=== PATIENT | female | born 1930 | race Caucasian/White ===

== ENCOUNTER 2017-08-17 19:31 | Emergency (ER) | payer BC, MEDICARE ==
[~2017-08-17] VITALS: Ht 157.5 cm; Wt 65.0 kg
[~2017-08-17 19:31] MED LIST: CARV3.12 PO; EPIP0.3I IM; LACTCAP8 PO; LEVO50TA4 PO; MULT1TAB84 PO; SACC1CAP3 PO
[2017-08-17 19:33] VITALS: BP 159/69; PULSE 81; RESP 18; TEMP 98.4; O2SAT 98
[2017-08-17] MEDS ORDERED: SODIUM CHLORIDE 0.9% FLUSH 10 ML FLUSH IVF PRN (20:00)
[2017-08-17 20:06] VITALS: BP 144/68; PULSE 96
--- NOTE | 2017-08-17 20:08 | PD ---
HPI Chief Complaint: Chest Pain Time Seen by Provider: 20:01 Travel History International Travel<30 days: No Contact w/Intl Traveler<30days: No Traveled to known affect area: No History of Present Illness HPI Patient is a 60 female presenting to the emergency department for evaluation of palpitations. She states that she started having a dull headache this afternoon , she felt chilled so she checked her temperature and she reports it as being 100. She also noted that her heart rate was fast. She denied any nausea, vomiting, abdominal pain, chest pain, shortness of breath, visual changes, body aches, nasal congestion, sore throat. She states that she was concerned because she had stents placed on 07/10/17 more she was in [place]. She reports seeing Dr. Beach last week and states everything was okay. 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) Social History Alcohol Use: Yes (RED WINE ONE GLASS ) Tobacco Use: No Substance Use: No Allergies-Medications (Allergen,Severity, Reaction): Coded Allergies: black pepper (Verified Allergy, Severe, Swelling, 08/17/17) LIP SWELLING No Known Allergies (Unverified Adverse Reaction, Unknown, 08/17/17) Reported Meds & Prescriptions Reported Meds & Active Scripts Active Levothyroxine (Levothyroxine Sodium) 50 Mcg Tab 50 Mcg PO DAILY Reported Probiotic (Lactobacillus Acidophilus) 1 Cap Cap 1 Cap PO TIDAC Multivitamin Adults (Multiple Vitamins W/ Minerals) 1 Tab 1 Tab PO DAILY Carvedilol 3.125 Mg Tab 3.125 Mg PO BID Epipen 2-Marco A Inj (Epinephrine) 0.3 Mg/0.3 Ml Pfpen 0.3 Mg IM ONCE PRN Probiotic (Saccharomyces Boulardii) 250 Mg Cap 250 Mg PO BID Review of Systems Except as stated in HPI: all other systems reviewed are Neg General / Constitutional: Positive: Fever HENT: Positive: Headaches Cardiovascular: Positive: Palpitations, Tachycardia Respiratory: No: Cough, Shortness of Breath Gastrointestinal: No: Nausea, Abdominal Pain Musculoskeletal: No: Myalgias Neurologic: No: Weakness, Dizziness, Syncope, Focal Abnormalities Physical Exam Narrative GENERAL: Well-developed, well-nourished, elderly female. Resting comfortably in no acute distress. SKIN: Warm and dry. HEAD: Atraumatic. Normocephalic. EYES: Pupils equal and round. No scleral icterus. No injection or drainage. ENT: No nasal bleeding or discharge. Mucous membranes pink and moist. NECK: Trachea midline. No JVD. CARDIOVASCULAR: Regular rate and rhythm. RESPIRATORY: No accessory muscle use. Clear to auscultation. Breath sounds equal bilaterally. GASTROINTESTINAL: Abdomen soft, non-tender, nondistended. Hepatic and splenic margins not palpable. MUSCULOSKELETAL: Extremities without clubbing, cyanosis, or edema. No obvious deformities. NEUROLOGICAL: Awake and alert. No obvious cranial nerve deficits. Motor grossly within normal limits. Five out of 5 muscle strength in the arms and legs. Normal speech. PSYCHIATRIC: Appropriate mood and affect; insight and judgment normal. Data Data Last Documented VS Vital Signs Date Time Temp Pulse Resp B/P (MAP) Pulse Ox O2 Delivery O2 Flow Rate FiO2 08/17/17 20:35 96 18 144/68 (93) 96 Room Air 08/17/17 19:33 98.4 Orders Orders Electrocardiogram (08/17/17 20:00) Ckmb (Isoenzyme) Profile (08/17/17 20:00) Complete Blood Count With Diff (08/17/17 20:00) Comprehensive Metabolic Panel (08/17/17 20:00) Magnesium (Mg) (08/17/17 20:00) Prothrombin Time / Inr (Pt) (08/17/17 20:00) Act Partial Throm Time (Ptt) (08/17/17 20:00) Troponin I (08/17/17 20:00) Lipase (08/17/17 20:00) Chest, Single Ap (08/17/17 20:00) Ecg Monitoring (08/17/17 20:00) Bilateral Bp Monitoring (08/17/17 20:00) Iv Access Insert/Monitor (08/17/17 20:00) Oximetry (08/17/17 20:00) Oxygen Administration (08/17/17 20:00) Sodium Chloride 0.9% Flush (Ns Flush) (08/17/17 20:00) Urinalysis - C+S If Indicated (08/17/17 20:00) CKMB (08/17/17 20:45) CKMB% (08/17/17 20:45) Ed Discharge Order (08/17/17 22:02) Acetaminophen (Tylenol) (08/17/17 22:15) Labs Laboratory Tests Test 08/17/17 20:45 White Blood Count 8.6 TH/MM3 Red Blood Count 4.06 MIL/MM3 Hemoglobin 12.9 GM/DL Hematocrit 38.2 % Mean Corpuscular Volume 94.0 FL Mean Corpuscular Hemoglobin 31.8 PG Mean Corpuscular Hemoglobin Concent 33.9 % Red Cell Distribution Width 14.0 % Platelet Count 267 TH/MM3 Mean Platelet Volume 8.4 FL Neutrophils (%) (Auto) 89.8 % Lymphocytes (%) (Auto) 5.4 % Monocytes (%) (Auto) 3.8 % Eosinophils (%) (Auto) 0.4 % Basophils (%) (Auto) 0.6 % Neutrophils # (Auto) 7.7 TH/MM3 Lymphocytes # (Auto) 0.5 TH/MM3 Monocytes # (Auto) 0.3 TH/MM3 Eosinophils # (Auto) 0.0 TH/MM3 Basophils # (Auto) 0.0 TH/MM3 CBC Comment DIFF FINAL Differential Comment Blood Urea Nitrogen 10 MG/DL Creatinine 0.94 MG/DL Random Glucose 102 MG/DL Total Protein 7.8 GM/DL Albumin 4.0 GM/DL Calcium Level 8.7 MG/DL Magnesium Level 2.0 MG/DL Alkaline Phosphatase 48 U/L Aspartate Amino Transf (AST/SGOT) 30 U/L Alanine Aminotransferase (ALT/SGPT) 19 U/L Total Bilirubin 0.5 MG/DL Sodium Level 137 MEQ/L Potassium Level 4.2 MEQ/L Chloride Level 104 MEQ/L Carbon Dioxide Level 24.1 MEQ/L Anion Gap 9 MEQ/L Estimat Glomerular Filtration Rate 56 ML/MIN Total Creatine Kinase 146 U/L Creatine Kinase MB 1.4 NG/ML Troponin I LESS THAN 0.02 NG/ML Lipase 133 U/L MDM Medical Decision Making Medical Screen Exam Complete: Yes Emergency Medical Condition: Yes Medical Record Reviewed: Yes Interpretation(s) Vital Signs Date Time Temp Pulse Resp B/P (MAP) Pulse Ox O2 Delivery O2 Flow Rate FiO2 08/17/17 19:33 98.4 81 18 159/69 (99) 98 Room Air Differential Diagnosis ACS versus USA versus viral syndrome versus metabolic abnormality versus UTI versus other Narrative Course Patient is a 86-year-old female that presented to emergency department evaluation of palpitations and headache. No focal deficits noted on exam. Labs and imaging ordered and pending. Patient's vital signs are stable. Chest x-ray shows no acute disease CBC and chemistry reviewed, unremarkable. Cardiac enzymes are negative 1 set EKG shows sinus rhythm with occasional PVCs. Discussed findings with my attending physician as well as patient. Patient was given the option of being placed in the chest pain Center overnight as we do not have access to her records from [place] after the stent placement. Patient would rather be discharged home and will follow up with her doctor of optometry. She was given strict return precautions. She was encouraged return to emergency department immediately for any new or worsening symptoms. Patient and Spouse verbalized understanding of these instructions. Patient was given acetaminophen for her headache. Diagnosis Primary Impression: Intermittent palpitations Additional Impression: Headache Qualified Codes: R51 - Headache Referrals: Heavy Equipment Field Mechanic 2 days Primary Care Physician 2 days Patient Instructions: Chest Pain (ED), General Instructions, Heart Palpitations (ED) Additional Instructions: Follow-up with her doctor of optometry in 1-2 days Follow-up with her primary doctor in 1-2 days Return to emergency department immediately for any new or worsening symptoms Continue home medications as previously prescribed Med/Other Pt SpecificInfo: No Change to Meds Disposition: 01 DISCHARGE HOME Condition: Stable Deisy Alexander Aug 17, 2017 20:08
--- NOTE | 2017-08-17 20:15 | PD ---
Physical Exam Narrative General: The patient is a well-developed well-nourished female in no acute distress. Head and Neck exam: Head is normocephalic atraumatic. Eyes: Pupils are equal round and reactive to light. Nose: Midline septum with pink mucous membranes Mouth: Dentition unremarkable. Moist mucus membranes. Posterior oropharynx is not erythematous. No tonsillar hypertrophy. Uvula midline. Airway patent. Neck: No palpable lymphadenopathy. No nuchal rigidity. No thyromegaly. Cardiovascular: Regularly irregular on auscultation with occasional PVCs noted without murmurs, gallops, or rubs. No pulse deficit to the extremities on simultaneous auscultation and palpation of her radial artery. Lungs: Clear to auscultation bilaterally. No wheezes, rhonchi, or rales. Abdomen: Soft, without tenderness to palpation in all 4 quadrants of the abdomen. No guarding, rebound, or rigidity. Normal bowel sounds are audible. No tenderness on palpation of McBurney's point. Extremities: No clubbing or cyanosis. The patient has trace pedal edema bilateral lower extremities. 2+ pulses in all 4 extremities. No calf tenderness on palpation. Back: No costovertebral angle tenderness to palpation. Neurologic Exam: Grossly nonfocal. Skin Exam: No rash noted. Intact skin that is warm and dry. Data Data Last Documented VS Vital Signs Date Time Temp Pulse Resp B/P (MAP) Pulse Ox O2 Delivery O2 Flow Rate FiO2 08/17/17 22:07 08/17/17 20:35 96 18 96 Room Air 08/17/17 19:33 98.4 Orders Orders Electrocardiogram (08/17/17 20:00) Ckmb (Isoenzyme) Profile (08/17/17 20:00) Complete Blood Count With Diff (08/17/17 20:00) Comprehensive Metabolic Panel (08/17/17 20:00) Magnesium (Mg) (08/17/17 20:00) Prothrombin Time / Inr (Pt) (08/17/17 20:00) Act Partial Throm Time (Ptt) (08/17/17 20:00) Troponin I (08/17/17 20:00) Lipase (08/17/17 20:00) Chest, Single Ap (08/17/17 20:00) Ecg Monitoring (08/17/17 20:00) Bilateral Bp Monitoring (08/17/17 20:00) Iv Access Insert/Monitor (08/17/17 20:00) Oximetry (08/17/17 20:00) Oxygen Administration (08/17/17 20:00) Sodium Chloride 0.9% Flush (Ns Flush) (08/17/17 20:00) CKMB (08/17/17 20:45) CKMB% (08/17/17 20:45) Ed Discharge Order (08/17/17 22:02) Acetaminophen (Tylenol) (08/17/17 22:15) Labs Laboratory Tests Test 08/17/17 20:45 08/17/17 21:30 White Blood Count 8.6 TH/MM3 Red Blood Count 4.06 MIL/MM3 Hemoglobin 12.9 GM/DL Hematocrit 38.2 % Mean Corpuscular Volume 94.0 FL Mean Corpuscular Hemoglobin 31.8 PG Mean Corpuscular Hemoglobin Concent 33.9 % Red Cell Distribution Width 14.0 % Platelet Count 267 TH/MM3 Mean Platelet Volume 8.4 FL Neutrophils (%) (Auto) 89.8 % Lymphocytes (%) (Auto) 5.4 % Monocytes (%) (Auto) 3.8 % Eosinophils (%) (Auto) 0.4 % Basophils (%) (Auto) 0.6 % Neutrophils # (Auto) 7.7 TH/MM3 Lymphocytes # (Auto) 0.5 TH/MM3 Monocytes # (Auto) 0.3 TH/MM3 Eosinophils # (Auto) 0.0 TH/MM3 Basophils # (Auto) 0.0 TH/MM3 CBC Comment DIFF FINAL Differential Comment Blood Urea Nitrogen 10 MG/DL Creatinine 0.94 MG/DL Random Glucose 102 MG/DL Total Protein 7.8 GM/DL Albumin 4.0 GM/DL Calcium Level 8.7 MG/DL Magnesium Level 2.0 MG/DL Alkaline Phosphatase 48 U/L Aspartate Amino Transf (AST/SGOT) 30 U/L Alanine Aminotransferase (ALT/SGPT) 19 U/L Total Bilirubin 0.5 MG/DL Sodium Level 137 MEQ/L Potassium Level 4.2 MEQ/L Chloride Level 104 MEQ/L Carbon Dioxide Level 24.1 MEQ/L Anion Gap 9 MEQ/L Estimat Glomerular Filtration Rate 56 ML/MIN Total Creatine Kinase 146 U/L Creatine Kinase MB 1.4 NG/ML Troponin I LESS THAN 0.02 NG/ML Lipase 133 U/L Prothrombin Time 11.5 SEC Prothromb Time International Ratio 1.1 RATIO Activated Partial Thromboplast Time 25.0 SEC [facility] Medical Record Reviewed: Yes Supervised Visit with KEITH: Yes Interpretation(s) Last Impressions Chest X-Ray 08/17/171999 Signed Impressions: Service Date/Time: Thursday, August 17, 2017 20:17 - CONCLUSION: No acute disease. Kurt Ojeda MD Differential Diagnosis SVT, versus paroxysmal atrial fibrillation, versus PVCs, versus dehydration, versus electrolyte derangement Narrative Course I, Dr. Graham, have reviewed the advance practice practitioner's documentation and am in agreement, met with the patient face to face, made the diagnosis, and the medical decision making was done by me. The patient was initially evaluated by Deisy, the nurse practitioner. Please see their complete history and physical. *My assessment and Findings: The patient presents with reported history of feeling chills and palpitations earlier this evening. She denies having any chest pain, chest pressure, or shortness of breath. She did however become concerned when she could feel her heart beating. She reports that her perinatal breastfeeding assistant is Dr. Beach. She reports that she recently underwent a heart catheterization with stent placement in July. She reports that she has on a low-dose aspirin and Plavix daily. She reports that she had a temperature of 100 prior to arrival. She is unsure whether she had her flu shot this year. She denies having any cough, congestion, abdominal pain, vomiting, diarrhea, difficulty with urinating, or new neurologic symptoms. During the course of the patients emergency department visit, the patients history, examination, and differential diagnosis were reviewed with the patient. The patient was placed on a cardiac/vascular sonographer with oximetry and frequent blood pressure monitoring. The patient had IV access obtained and blood work sent for analysis. The patient on my arrival to the room reports feeling completely well and is requesting to go home. The patient's ECG done on arrival shows a sinus rhythm with occasional ventricular premature complexes, nonspecific ST-T wave abnormalities, QRS duration is 74 ms, QTC 411 ms, no acute ST segment elevation or depression. The patients laboratory studies were reviewed and remarkable for a white count of 8.6, hemoglobin 12.9, platelets 267, neutrophils 89.8, CMP is remarkable for GFR 56, initial set of cardiac enzymes are negative, lipase 133, PT 11.5, PTT 25 Radiology studies were reviewed and remarkable for a chest x-ray that shows no acute cardiopulmonary disease. The patient was offered admission to the chest pain center for rule out serial cardiac enzyme protocol, however the patient prefers to follow-up as an outpatient and she reports feeling improved, symptoms completely resolved. The patient is resting comfortably and feels better, is alert and in no distress. The patients results and examination findings were discussed with the patient. The repeat examination is unremarkable and benign. The history, exam, diagnostic testing, and current condition do not suggest any significant pathology to warrant further testing, continued ED treatment, admission, or surgical evaluation at this point. The vital signs have been stable. The patient does not have uncontrollable pain, intractable vomiting, or other significant symptoms. The patient's condition is stable and appropriate for discharge. The patient will pursue further outpatient evaluation with a primary care physician or other designated or consulting physician as indicated in the discharge instructions. The patient expressed understanding and was agreeable with this plan. Anna Graham MD Aug 17, 2017 20:15
--- NOTE | 2017-08-17 20:33 | RADRPT ---
EXAM DATE/TIME: 08/17/2017 20:17 [facility] COMPARISON: No previous studies available for comparison. INDICATIONS : Chest pain MEDICAL HISTORY : SURGICAL HISTORY : None. ENCOUNTER: Initial ACUITY: 1 day PAIN SCORE: 0/10 LOCATION: chest FINDINGS: The heart size is normal. There is linear suspected atelectasis or consolidation at the medial left l lionel base. The lungs are otherwise clear. No effusion is seen. CONCLUSION: No acute disease. Kurt Oejda MD on August 17, 2017 at 20:30 Board Certified Radiologist. This report was verified electronically.
[2017-08-17 20:35] VITALS: BP 144/68; PULSE 96; RESP 18; O2SAT 96
[2017-08-17 21:14] LABS: AUTOMATED NEUTROPHIL # 7.7 TH/MM3 (1.8-7.7); BASOPHIL % 0.6 % (0.0-2.0); EOSINOPHIL % 0.4 % (0.0-4.0); HEMATOCRIT 38.2 % (35.0-46.0); HEMOGLOBIN 12.9 GM/DL (11.6-15.3); LYMPH % 5.4 % (9.0-44.0); LYMPHOCYTE # 0.5 TH/MM3 (1.0-4.8); MEAN CORPUSCULAR HEMOGLOBIN 31.8 PG (27.0-34.0); MEAN CORPUSCULAR HGB CONC 33.9 % (32.0-36.0); MEAN PLATELET VOLUME 8.4 FL (7.0-11.0); MONO % 3.8 % (0.0-8.0); MONOCYTE # 0.3 TH/MM3 (0-0.9); NEUT % 89.8 % (16.0-70.0); PLATELET COUNT 267 TH/MM3 (150-450); RED BLOOD COUNT 4.06 MIL/MM3 (4.00-5.30); WHITE BLOOD COUNT 8.6 TH/MM3 (4.0-11.0)
[2017-08-17 21:35] LABS: ALKALINE PHOSPHATASE 48 U/L (45-117); ALT (GPT) 19 U/L (10-53); AST (GOT) 30 U/L (15-37); BICARBONATE 24.1 MEQ/L (21.0-32.0); BLOOD UREA NITROGEN 10 MG/DL (7-18); CALCIUM 8.7 MG/DL (8.5-10.1); CHLORIDE 104 MEQ/L (98-107); CREATININE 0.94 MG/DL (0.50-1.00); GLOMERULAR FILTRATION RATE 56 ML/MIN (>89); GLUCOSE,RANDOM 102 MG/DL (74-106); LIPASE 133 U/L (73-393); SODIUM (NA) 137 MEQ/L (136-145); TOTAL BILIRUBIN ADULT 0.5 MG/DL (0.2-1.0); TOTAL PROTEIN 7.8 GM/DL (6.4-8.2); TROPONIN I LESS THAN 0.02 NG/ML (0.02-0.05)
[2017-08-17] MEDS ORDERED: ACETAMINOPHEN 325 MG TAB PO ONE (22:15)
[2017-08-17 22:29] LABS: INTERNATIONAL NORMALIZED RATIO 1.1 RATIO; PROTHROMBIN TIME - PATIENT 11.5 SEC (9.8-11.6)
--- NOTE | 2017-08-18 18:07 | EKG ---
Date Performed: 08/17/2017 Time Performed: 20:03:09 PTAGE: 86 years EKG: Sinus rhythm WITH OCCASIONAL VENTRICULAR PREMATURE COMPLEXES NONSPECIFIC ST & T-WAVE ABNORMALITY BORDERLINE ECG S millicent PREVIOUS TRACING , no significant change noted PREVIOUS TRACIN03/02/2012 15.48 DOCTOR: Amrita Lopez Interpretating Date/Time 08/18/2017 18:06:21
== END 2017-08-17 22:31 | disposition home or self-care (01) ==
LOC: NEPE 19:31
DX: R00.2 Palpitations (principal); R07.9 Chest pain, unspecified; R51 Headache; R94.31 Abnormal electrocardiogram [ECG] [EKG]; E78.00 Pure hypercholesterolemia, unspecified; I25.10 Atherosclerotic heart disease of native coronary artery without angina pectoris; I10 Essential (primary) hypertension; E07.9 Disorder of thyroid, unspecified; Z79.899 Other long term (current) drug therapy
CPT/HCPCS: 71010; 80053; 82550; 82552; 83690; 83735; 84484; 85025; 85610; 85730; 93005; 99285